=== PATIENT | male | born 1990 | race Two or more races ===

== ENCOUNTER 2021-01-07 13:39 | Emergency (ER) | payer SELFPAY ==
[~2021-01-07] VITALS: Ht 172.7 cm; Wt 113.4 kg
[2021-01-07 14:45] VITALS: BP 116/78
== END 2021-01-07 15:25 | disposition home or self-care (01) ==
LOC: ER 13:39
DX: M72.2 Plantar fascial fibromatosis (principal)
CPT/HCPCS: 73610